=== PATIENT | female | born 1990 | race African-American/Black ===

== ENCOUNTER 2019-07-09 06:25 | Emergency (ER) | payer SELFPAY ==
[2019-07-09] MEDS ORDERED: Dexamethasone 10 MG/ML VIAL ONE (06:38)
[2019-07-09] MEDS ORDERED: Magnesium 2 GM/50 ML BAG (IN WATER) ONE (07:11)
--- NOTE | 2019-07-09 07:19 | RAD ---
SINGLE VIEW CHEST: Date: 07/09/2019 COMPARISON: None. HISTORY: Dyspnea. FINDINGS: Single view of the chest shows a normal sized cardiomediastinal silhouette. There is no evidence of c onsolidation, mass, or pleural effusion. The bones are unremarkable. IMPRESSION: No evidence of acute cardiopulmonary disease. POS: [facility]
== END 2019-07-09 08:19 | disposition home or self-care (01) ==
LOC: ERS 06:25
DX: J45.901 Unspecified asthma with (acute) exacerbation (principal)
CPT/HCPCS: 71045; 94640; 96365; J1100; J3475; J7620

== ENCOUNTER 2020-10-02 12:26 | Emergency (ER) | payer SELFPAY | END 2020-10-02 13:42 | disposition home or self-care (01) | LOC: ERS 12:26 | DX: K02.9 Dental caries, unspecified (principal) | CPT/HCPCS: 99282 ==

== ENCOUNTER 2020-12-27 21:16 | Emergency (ER) | payer SELFPAY ==
[2020-12-27 22:04] LABS: Bilirubin Negative (Negative); Blood, Urine Negative (Negative); Clarity Clear (Clear); Glucose, Urine (Dipstick) Normal (Negative); Ketone, Urine Negative (Negative); Leukocyte Negative Leu/uL (Negative); Nitrite Negative (Negative); Protein, Urine (Dipstick) Negative (Neg-Trace); Specific Gravity, Urine 1.027 (1.002-1.036); Urobilinogen Normal mg/dL (Less than 2)
[2020-12-27 22:07] LABS: Pregnancy Test - Urine (BHCG) Negative (Negative); Pregu Control Background? CLEAR/WHITE (CLR/WHITE); Pregu Control Bar Appear? YES (CONTROL BAR); Specific Gravity 1.027 (1.002-1.036)
[2020-12-28] MEDS ORDERED: Ketorolac Tromethamine 30 MG/ML VIAL ONE (00:06)
[2020-12-29 17:15] LABS: Chlamydia by PCR Not Detected (NotDetected); GC by PCR Not Detected (NotDetected)
== END 2020-12-28 01:40 | disposition home or self-care (01) ==
LOC: ERS 21:16
DX: R10.31 Right lower quadrant pain (principal); R10.32 Left lower quadrant pain; I10 Essential (primary) hypertension
CPT/HCPCS: 74176; 81003; 81025; 87480; 87491; 87510; 87591; 87660; 96372; J1885

== ENCOUNTER 2021-12-14 14:26 | Outpatient (CLI) | payer OTHER | END 2021-12-14 14:27 | disposition home or self-care (01) | LOC: BICULT 14:26 | PROVIDERS: ATTEND Family Medicine | DX: O09.292 Supervision of pregnancy with other poor reproductive or obstetric history, second trimester (principal); Z3A.25 25 weeks gestation of pregnancy | CPT/HCPCS: 76805 ==

== ENCOUNTER 2023-02-19 20:16 | Emergency (ER) | payer OTHER, SELFPAY ==
[2023-02-19] MEDS ORDERED: Acetaminophen 325 MG TAB ONE (20:59)
== END 2023-02-19 20:27 | disposition home or self-care (01) ==
LOC: ERS 20:16
DX: S93.401A Sprain of unspecified ligament of right ankle, initial encounter (principal); E11.9 Type 2 diabetes mellitus without complications; X50.0XXA Overexertion from strenuous movement or load, initial encounter